=== PATIENT | male | born 1990 | race Caucasian/White ===

== ENCOUNTER 2019-02-02 13:39 | Emergency (ER) | payer SELFPAY ==
[2019-02-02 13:52] VITALS: BP 105/61; PULSE 62; TEMP 98.8; BMI 23.3
[2019-02-02] MEDS ORDERED: ACETAMINOPHEN 1000 MG/100 ML VIAL (NON FORMULARY) IVPB ONE (14:24)
[2019-02-02] MEDS ORDERED: AMPICILLIN NA/SULBACTAM NA 3 GM in SODIUM CHLORIDE 100 ML IVPB ONE (14:24)
[2019-02-02] MEDS ORDERED: ACETAMINOPHEN INJECTION 100 ML IVPB ONE (14:28)
--- NOTE | 2019-02-02 14:39 | PDOC ---
History of Present Illness - General Chief Complaint: Wound Stated Complaint: TOOTHACHE Time Seen by Provider: 02/02/19 13:56 History Source: Patient Exam Limitations: No Limitations - History of Present Illness Initial Comments: 02/02/19 14:48 29y M with no significant PMH presenting to ED for R tooth pain and swelling. Patient had an infected lower molar and [place] it [place] 6[place] He states he was taking amoxicillin prior to and after extraction. He came to [place] to visit his sister but the pain continued and swelling got worse. He went to a dental clinic 2 d ago and was given Clindamycin. He endorses pain with swallowing. Denies SOB, headache, fevers, chills, chest pain , sob, vomiting, diarrhea. PMD: [place] PMH: none PSH; none Meds: clindamycin Allergies; nkda Past History - Past Medical History Allergies/Adverse Reactions: Allergies Allergy/AdvReac Type Severity Reaction Status Date / Time No Known Allergies Allergy Verified 02/02/19 13:55 - Psycho Social/Smoking Cessation Hx Smoking History: Never smoked Information on smoking cessation initiated: No Hx Alcohol Use: No Drug/Substance Use Hx: No Review of Systems - Review of Systems Constitutional: No: Symptoms Reported HEENTM: Yes: See HPI, Throat Pain, Dental Problems, Mouth Swelling. No: Difficulty Swallowing Respiratory: No: Symptoms reported Cardiac (ROS): No: Symptoms Reported ABD/GI: No: Symptoms Reported : No: Symptoms Reported Musculoskeletal: No: Symptoms Reported Integumentary: No: Symptoms Reported Neurological: No: Symptoms reported *Physical Exam - Vital Signs Last Vital Signs Temp Pulse Resp BP Pulse Ox 98.8 F 62 16 105/61 100 02/02/19 13:50 02/02/19 13:50 02/02/19 13:50 02/02/19 13:50 02/02/19 13:50 - Physical Exam General Appearance: Yes: Nourished, Appropriately Dressed, Thin. No: Apparent Distress HEENT: positive: EOMI, DIANE, Normal Voice, Other (swelling with ttp at R mandibular angle, elevated sublingual tissue. oral mucosa is clean and moist, no active draining. ). negative: Pharyngeal Erythema, Tonsillar Exudate, Tonsillar Erythema, Nasal Congestion, Excessive drooling Neck: positive: Trachea midline, Supple. negative: Stridor, Lymphadenopathy (R) , Lymphadenopathy (L) Respiratory/Chest: positive: Lungs Clear, Normal Breath Sounds. negative: Crackles, Rales, Rhonchi, Stridor, Wheezing Cardiovascular: positive: Regular Rhythm, Regular Rate, S1, S2. negative: Edema , JVD, Murmur Gastrointestinal/Abdominal: positive: Normal Bowel Sounds, Soft. negative: Tender Musculoskeletal: positive: Normal Inspection Extremity: positive: Normal Range of Motion, Pelvis Stable. negative: Swelling Integumentary: positive: Normal Color, Dry, Warm Neurologic: positive: customer success specialist II-XII NML intact, Fully Oriented, Alert, Normal Mood/ Affect, Normal Response, Motor Strength 06/13 Medical Decision Making - Medical Decision Making 02/02/19 14:50 29y M presenting to ED s/p lower molar extraction 6d ago with increasing pain and swelling vitals are normal. patient has sublingual swelling and swelling at angle of R mandible with pain to palpation. slight erythema, no fluctuance or induration. oral mucosa is intact, no drainage seen at site of extraction. suspect cellulitis/Matthew's Angina without airway compromise. Patient denies change in voice, is tolerating secretions and not in respiratory distress, does not require definitive airway at this time. will order basic labs and start Unasyn Dental and ENT is not readily available at this facility. Patient prefers transfer to [facility]. Spoke to Dr. Houston (ENT), will accept ED-ED transfer and can be seen by dental. Patient drove here (is the only one in the family who can drive) and does not want the added expense of ambulance transportation to [facility]. Patient is not in acute respiratory distress, no airway compromise. However given impending compromise, patient will need to sign AMA. patient told risks of leaving including airway compromise and . Patient verbalized understanding and will proceed to sign out AMA. Patient given address to [facility] ED. Discharge - Discharge Information Problems reviewed: Yes Clinical Impression/Diagnosis: Matthew's angina Condition: Stable Disposition: AGAINST MEDICAL ADVICE - Follow up/Referral - Patient Discharge Instructions Additional Instructions: Vaya directamente a [facility]. [address], [place] [address] - Post Discharge Activity
--- NOTE | 2019-02-04 14:11 | EKG ---
Test Reason : Blood Pressure : / mmHG Vent. Rate : 061 BPM Atrial Rate : 061 BPM P-R Int : 178 ms QRS Dur : 098 ms QT Int : 358 ms P-R-T Axes : 077 078 058 degrees QTc Int : 360 ms NORMAL SINUS RHYTHM ST ELEVATION, CONSIDER EARLY REPOLARIZATION, PERICARDITIS, OR INJURY ABNORMAL ECG NO PREVIOUS ECGS AVAILABLE Confirmed by OCTAVIO SOUSA MD ([id number]) on 02/04/2019 2:11:18 PM Referred By: Confirmed By:OCTAVIO SOUSA MD
--- NOTE | 2019-02-11 09:44 | PDOC ---
Documentation entered by Karon Reich SCRIBE, acting as scribe for Ai Blankenship MD. Ai Blankenship MD: This documentation has been prepared by the scribe, Karon Reich SCRIBE, under my direction and personally reviewed by me in its entirety. I confirm that the documentation accurately reflects all work, treatment, procedures, and medical decision making performed by me. Attending Attestation - Resident Resident Name: Ana Rosa Foster - ED Attending Attestation I have performed the following: I have examined & evaluated the patient, The case was reviewed & discussed with the resident, I agree w/resident's findings & plan, Exceptions are as noted - HPI HPI: 02/02/19 15:05 The patient is a 29-year-old male with no reported past medical history who presents to the emergency department with increased pain and swelling to the right jaw. The patient is s/p 2 tooth extraction on (01/27) following a tooth infection. Prior to and following the surgery, the patient was on Amoxicillin. The patient reports he is visiting his sister from [place]. The patient reports he started to have increased pain and swelling, followed up at a dental clinic on Thursday, where he was started on Clindamycin. The patient presents today for increased pain and swelling, associated with throat pain and swelling. Denies drooling. The family denies change in the patients voice. Denies headache, fever, chills, wheezing, shortness of breath, abdominal pain. Denies neck stiffness, focal weakness/numbness, N/V. - Physicial Exam PE: 02/02/19 15:41 GENERAL: Well appearing, Awake, alert, and fully oriented, in no acute distress. Nontoxic appearing. HEAD: No signs of trauma EYES: PERRLA, EOMI, sclera anicteric, conjunctiva clear ENT: +edema to the right submandibular area that was fluctuant in nature. Submandibular elevation with tongue raise, only on the right side. Midline uvula. No posterior edema. Tolerating secretions. NECK: Normal ROM, supple, no lymphadenopathy, JVD, or masses LUNGS: In no respiratory distress. Breath sounds equal, clear to auscultation bilaterally. No wheezes, and no crackles HEART: Regular rate and rhythm, normal S1 and S2, no murmurs, rubs or gallops ABDOMEN: Soft, nontender, normoactive bowel sounds. No guarding, no rebound. No masses EXTREMITIES: Normal range of motion, no edema. No clubbing or cyanosis. No cords , erythema, or tenderness BACK: No midline spinal tenderness in cervical/thoracic/lumbar region NEUROLOGICAL: Normal speech, cranial nerves intact, negative pronator drift, 5/ 5 strength in all 4 extremities, normal sensation to light touch in all 4 extremities, normal cerebellar exam, normal gait, normal reflexes and tone SKIN: Warm, Dry, normal turgor, no rashes or lesions noted. - Medical Decision Making 02/02/19 14:25 Call placed to [facility]. Case discussed with Marianne, waiting to be connected to control room helper ENT. 02/02/19 14:[address] ENT Dr[address] Wang Houston 02/02/19 15:00 [facility] phone quality assurance lead used : 29-year-old male presents to the emergency department with right-sided jaw swelling status post tooth extraction and 2 courses of outpatient antibiotics. Exam consistent with possible early Matthew's angina. Patient is protecting his airway at this time. Plan was to obtain labs, give the patient 2 g of Unasyn and transfer to [facility] (pt and sister's preference) for OMFS and ENT consultation. Patient and his sister do not want to be transferred via ambulance due to insurance purposes. They also state that the patient is the only one who knows how to drive and they brought their car here to [facility]. As such, they would not be able to drive at home if the patient were to be transported via ambulance to [place]. Discussed with patient at length the concern for Matthew's angina including progression to airway compromise, disability, and possibly . Patient and his sister expressed understanding and prefer to drive over to [place] themselves at this time. The patient is clinically sober, free from distracting injury, appears to have intact insight and judgment and reason and in my opinion has the capacity to make decisions. The patient presents with R sided jaw pain and swelling. I have explained that I am concerned that this may represent ludwigs angina, a severe oral infection that can cause breathing problems, disability or even ; he has verbalized an understanding of my concerns. I have discussed the need for labs, IV antibiotics, and transfer to a hospital with dental and ENT services for further evaluation and management. I have told the patient that if they leave, they could get much worse, could become critically ill, and could possibly become disabled or . I have discussed these concerns with the patients sister who is at the bedside and she is unable to convince them to stay for further evaluation. The patient is not willing to undergo a transfer. He is refusing any further care and is leaving against medical advice. I am unable to convince the patient to be transported via ambulance for dental and ENT consultation. I have asked them to return as soon as possible to complete their evaluation or to proceed immediately to [facility] for further evaluation. I have answered all their questions.
== END 2019-02-02 15:02 | disposition left against medical advice (07) ==
LOC: JER 13:39
DX: K12.2 Cellulitis and abscess of mouth (principal)
CPT/HCPCS: 93005; 93010; 99281-25

== ENCOUNTER 2019-02-21 15:16 | Emergency (ER) | payer OTHER ==
[2019-02-21 15:21] VITALS: BP 116/60; PULSE 75; TEMP 98; BMI 19.5
--- NOTE | 2019-02-21 18:19 | PDOC ---
History of Present Illness - General Chief Complaint: Pain Stated Complaint: RT FOOT PAIN Time Seen by Provider: 02/21/19 17:30 - History of Present Illness Initial Comments: 02/21/19 18:14 29-year-old male without comorbidities presents for evaluation of atraumatic right knee pain x2 days without systemic symptoms. Past History - Past Medical History Allergies/Adverse Reactions: Allergies Allergy/AdvReac Type Severity Reaction Status Date / Time No Known Allergies Allergy Verified 02/21/19 15:21 Home Medications: Ambulatory Orders Clindamycin [Cleocin -] 150 mg PO Q6H 02/02/19 Ibuprofen [Motrin -] 600 mg PO TID #30 tablet 02/21/19 COPD: No - Psycho Social/Smoking Cessation Hx Smoking History: Never smoked Hx Alcohol Use: No Drug/Substance Use Hx: No Review of Systems - Review of Systems Musculoskeletal: Yes: Joint Pain *Physical Exam - Vital Signs Last Vital Signs Temp Pulse Resp BP Pulse Ox 98 F 75 18 116/60 99 02/21/19 15:18 02/21/19 15:18 02/21/19 15:18 02/21/19 15:18 02/21/19 15:18 - Physical Exam 02/21/19 18:15 Right knee skin color and temperature normal. There is no warmth. Extensor mechanism is intact. Range of motion 0-45 beyond that causes pain. There is a large intra-articular effusion without medial lateral joint line tenderness or evidence of instability neurovascular intact. Thigh and calf are soft and nontender. Medical Decision Making - Medical Decision Making 02/21/19 18:15 Under aseptic technique 80 cc of serosanguineous fluid was aspirated this fluid was sent for culture sensitivity Gram stain cell count and crystals as well as Lyme PCR. No evidence of infection. Compressive Rambo wrap was applied and a short course of anti-inflammatories and orthopedic follow-up was recommended. Weight-bear as tolerated with crutches. Discharge - Discharge Information Problems reviewed: Yes Clinical Impression/Diagnosis: Knee effusion, right Condition: Stable Disposition: HOME - Admission No - Follow up/Referral Referrals: Elivn Angulo DO [Staff Physician] - - Patient Discharge Instructions Additional Instructions: Return to the emergency room for worsening symptoms. Please take the Motrin as directed. Follow-up with orthopedic surgery in 2 to 3 days without fail for further evaluation and treatment options. Do not sleep with a compressive Rambo wrap weight-bear as tolerated with crutches. - Post Discharge Activity
[2019-02-21 21:31] LABS: SYNOVIAL FLUID SOURCE SYNOVIAL
[2019-02-21 21:32] LABS: SYNOVIAL FLUID LYMPHOCYTES 31 %; SYNOVIAL FLUID MACROPHAGES 2 %; SYNOVIAL FLUID MONOCYTES 21 %; SYNOVIAL FLUID NEUTROPHILS 46 %
== END 2019-02-21 18:32 | disposition home or self-care (01) ==
LOC: JERFT 15:16
PROC: 0S9C3ZZ Drainage of Right Knee Joint, Percutaneous Approach (ICD-10-PCS; principal; 2019-02-21)
DX: M25.461 Effusion, right knee (principal)
CPT/HCPCS: 20610; 36415; 84560; 87070; 87075; 87205; 87476; 89051; 89060; 99282-25